=== PATIENT | male | born 1980 | race Caucasian/White ===

== ENCOUNTER 2016-09-12 02:39 | Emergency (ER) | payer SELFPAY ==
--- NOTE | 2016-09-12 03:49 | ER Document Report ---
HPI - HPI Patient complains to provider of: left shoulder injury Pain Level: 4 Context: Patient is a 36-year-old male that comes emergency department for chief complaint of injury to the left shoulder, he states that he slipped on his shower rug and fell, hitting his shoulder on the toilet. He denies head injury or neck pain. Denies focal numbness or weakness, denies any other injuries. He denies any daily medications or medical problems. - CONSTITUTIONAL Constitutional: DENIES: Fever, Chills - REPRODUCTIVE Reproductive: DENIES: : - DERM Skin Color: Normal Skin Problems: None - NURSING COMMENTS Comment: Patient presents to ER AAOx4 with chief complaint of LT shoulder pain due to fall. Patient states that he was getting out of the shower when he slipped striking his LT shoulder on the toliet. Patient is reporting 4/5 pain to the area. Patient does have limited ROM to the LT shoulder. Patient states that when he moves his shoulder he can feel and hear and popping and clicking sound. Patient is currently sitting on stretcher and is in NAD. Breaths even and unlabored. Patient is speaking in clear and complete sentences. Past Medical History - General Information source: Patient - Social History Smoking Status: Current Every Day Smoker Chew tobacco use (# tins/day): No Smoking Education Provided: Yes - < 3 min Frequency of alcohol use: Rare Drug Abuse: None Lives with: Family Family History: Reviewed & Not Pertinent Patient has suicidal ideation: No Patient has homicidal ideation: No Pulmonary Medical History: Reports: Hx Bronchitis Neurological Medical History: Reports: Hx Migraine. Denies: Hx Seizures Renal/ Medical History: Denies: Hx Peritoneal Dialysis GI Medical History: Reports: Hx Irritable Bowel, Hx Ulcer Past Surgical History: Reports: Hx Appendectomy - ruptured last yr - Immunizations Hx Diphtheria, Pertussis, Tetanus Vaccination: Yes Vertical Provider Document - CONSTITUTIONAL General Appearance: WD/WN, No Apparent Distress - Patient is holding his left arm close to his body, otherwise is in no distress - INFECTION CONTROL TRAVEL OUTSIDE OF THE [place] IN LAST 30 DAYS: No - HEENT HEENT: Atraumatic, Normal ENT Exam, Normocephalic - NECK Neck: Normal Inspection - RESPIRATORY Respiratory: Breath Sounds Normal, No Respiratory Distress O2 Sat by Pulse Oximetry: 96 - CARDIOVASCULAR Cardiovascular: Regular Rate, Regular Rhythm - GI/ABDOMEN Gastrointestinal: Abdomen Soft, Abdomen Non-Tender - BACK Back: Normal Inspection - MUSCULOSKELETAL/EXTREMETIES Musculoskeletal/Extremeties: Tender - Patient with tenderness in the before meals joint specifically on the left shoulder, range of motion is painful but present, normal distal neurovascular exam, normal clavicle and scapular exam, normal neck exam. Course - Re-evaluation Re-evalutation: X-ray with no acute abnormalities, no dislocation, fracture, or noted shoulder separation. Patient is tender over the before meals joint, was provided with a sling for comfort, showed him arm pendulum and walking the hand up the wall exercises to maintain range of motion, patient stating he gets "ulcers from acetaminophen, advising this is very unlikely, over he states he'll not take ibuprofen because he had kidney failure from this once. Provided with muscle relaxer, orthopedic follow-up, return precautions discussed, patient states understanding and agreement. - Vital Signs Vital signs: Temp Pulse Resp BP Pulse Ox 97.7 F 79 16 143/88 H 96 09/12/16 02:49 09/12/16 02:49 09/12/16 02:49 09/12/16 02:49 09/12/16 02:49 Procedures - Immobilization left arm/shoulder Pre-Proc Neuro Vasc Exam: Normal Immobilizer type: Sling Performed by: RN Post-Proc Neuro Vasc Exam: Normal Alignment checked and good: Yes Discharge - Discharge Clinical Impression: Injury of left shoulder Qualifiers: Encounter type: initial encounter Qualified Code(s): S49.92XA - Unspecified injury of left shoulder and upper arm, initial encounter Sprain of acromioclavicular joint Qualifiers: Encounter type: initial encounter Laterality: left Qualified Code(s): S43.52XA - Sprain of left acromioclavicular joint, initial encounter Condition: Stable Disposition: HOME, SELF-CARE Additional Instructions: X-ray does not show fracture, dislocation, or obvious shoulder separation. Wear the sling for comfort, however take out your arm regularly and perform the range of motion exercises I showed you. Ice your shoulder 3-4 times daily, take the muscle relaxer. After symptoms resolve resume normal activity. If symptoms do not resolve follow-up with orthopedics for additional management. Return to the emergency department for any concerning symptoms. Prescriptions: Methocarbamol [Robaxin 750 mg Tablet] 750 mg PO Q6 #20 tablet Forms: Return to Work Referrals: MYRIAM LOPEZ MD [ACTIVE STAFF] - Follow up in 1 week
[2016-09-12] MEDS ORDERED: HYDROCODONE/ACETAMINOPHEN 5-325 MG 6 TAB/DSPK PO PRN (03:50)
[2016-09-12 04:07] VITALS: BP 136/84
== END 2016-09-12 04:07 | disposition home or self-care (01) ==
LOC: ER 02:39
DX: S43.52XA Sprain of left acromioclavicular joint, initial encounter (principal); W01.198A Fall on same level from slipping, tripping and stumbling with subsequent striking against other object, initial encounter; Y93.89 Activity, other specified; F17.200 Nicotine dependence, unspecified, uncomplicated
CPT/HCPCS: 99283

== ENCOUNTER 2018-03-31 14:31 | Emergency (ER) | payer OTHER ==
[2018-03-31 15:09] VITALS: BP 136/93
--- NOTE | 2018-03-31 15:35 | RADIOLOGY REPORT (SQ) ---
EXAM DESCRIPTION: HAND RIGHT 3 VIEWS COMPLETED DATE/TIME: 03/31/2018 3:25 pm REASON FOR STUDY: right thumb pain COMPARISON: 01/02/2007 EXAM PARAMETERS: NUMBER OF VIEWS: Three views. TECHNIQUE: AP, lateral and oblique radiographic images acquired of the right hand. LIMITATIONS: None. FINDINGS: MINERALIZATION: Normal. BONES: No acute fracture or dislocation. No worrisome bone lesions. JOINTS: No effusions. SOFT TISSUES: No soft tissue swelling. No foreign body. OTHER: No other significant finding. IMPRESSION: NEGATIVE STUDY OF THE RIGHT HAND. NO RADIOGRAPHIC EVIDENCE OF ACUTE INJURY. TECHNICAL DOCUMENTATION: JOB ID: [id number] [employer]- All Rights Reserved Reading location - IP/workstation name: [email or web address]
--- NOTE | 2018-03-31 15:55 | ER Document Report ---
HPI - HPI Patient complains to provider of: Right thumb injury Onset: This afternoon Onset/Duration: Sudden Quality of pain: Achy Pain Level: 4 Context: Patient states that he was pulling up a jonathan and lost his balance falling back landing on his right hand. Patient complains of right thumb tenderness. Patient is right hand dominant. Associated Symptoms: Other - Right thumb injury Exacerbated by: Movement Relieved by: Denies Similar symptoms previously: No Recently seen / treated by doctor: No - ROS ROS below otherwise negative: Yes Systems Reviewed and Negative: Yes All other systems reviewed and negative - GASTROINTESTINAL Gastrointestinal: DENIES: Nausea - MUSCULOSKELETAL Musculoskeletal: REPORTS: Extremity pain - RIGHT THUMB, Swelling - DERM Skin Color: Normal Past Medical History - General Information source: Patient - Social History Smoking Status: Current Every Day Smoker Smoking Education Provided: Yes Frequency of alcohol use: Occasional Drug Abuse: None 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 Denies: Hx Seizures Renal/ Medical History: Denies: Hx Peritoneal Dialysis GI Medical History: Reports: Hx Irritable Bowel, Hx Ulcer Past Surgical History: Reports: Hx Appendectomy - ruptured last yr - Immunizations Hx Diphtheria, Pertussis, Tetanus Vaccination: Yes Vertical Provider Document - CONSTITUTIONAL Agree With Documented VS: Yes Exam Limitations: No Limitations General Appearance: WD/WN, No Apparent Distress - INFECTION CONTROL TRAVEL OUTSIDE OF THE [place] IN LAST 30 DAYS: No - HEENT HEENT: Atraumatic, Normocephalic - NECK Neck: Normal Inspection - RESPIRATORY Respiratory: No Respiratory Distress - CARDIOVASCULAR Pulses: Normal: Radial - MUSCULOSKELETAL/EXTREMETIES Musculoskeletal/Extremeties: MAEW, Tender - Right thumb tenderness at CMC joint and DIP joint, no obvious laxity, no deformity. Tenderness increases with range of motion. negative: Eccymosis - NEURO Level of Consciousness: Awake, Alert, Appropriate Motor/Sensory: No Motor Deficit - DERM Integumentary: Warm, Dry, No Rash Course - Vital Signs Vital signs: Temp Pulse Resp BP Pulse Ox 98.5 F 72 18 136/93 H 98 03/31/18 15:04 03/31/18 15:04 03/31/18 15:04 03/31/18 15:04 03/31/18 15:04 - Diagnostic Test Radiology reviewed: Image reviewed, Reports reviewed Procedures - Immobilization Right Thumb Pre-Proc Neuro Vasc Exam: Normal Immobilizer type: Thumb spica Performed by: PCT Post-Proc Neuro Vasc Exam: Normal Alignment checked and good: Yes Discharge - Discharge Clinical Impression: Sprain of right thumb Qualifiers: Encounter type: initial encounter Sprain of finger site: unspecified site Qualified Code(s): S63.601A - Unspecified sprain of right thumb, initial encounter Condition: Stable Disposition: HOME, SELF-CARE Instructions: Ice & Elevation ([facility]), Sprained Thumb ([facility]), Temporary Splint ( [facility]) Additional Instructions: Return immediately for any new or worsening symptoms Followup with your primary care provider, call tomorrow to make a followup appointment Follow-up with orthopedics for further evaluation, call tomorrow for an appointment Prescriptions: Tramadol HCl [Ultram 50 mg Tablet] 50 mg PO ASDIR PRN #15 tablet PRN Reason: Forms: Smoking Cessation Education, Return to Work Referrals: AYAN GATES DO [ACTIVE STAFF] - Follow up as needed
== END 2018-03-31 16:19 | disposition home or self-care (01) ==
LOC: ER 14:31
DX: S63.601A Unspecified sprain of right thumb, initial encounter (principal); W19.XXXA Unspecified fall, initial encounter; Y93.89 Activity, other specified; F17.200 Nicotine dependence, unspecified, uncomplicated
CPT/HCPCS: 99283

== ENCOUNTER 2018-06-10 19:57 | Emergency (ER) | payer SELFPAY ==
[2018-06-10] MEDS ORDERED: ONDANSETRON HCL INJ/PF 4 MG/2 ML SDV IV ONE (22:24)
[2018-06-10] MEDS ORDERED: FENTANYL CITRATE INJ/PF 100 MCG/2 ML AMPUL IV ONE (22:24)
--- NOTE | 2018-06-10 22:24 | ER Document Report ---
ED Headache - General Chief Complaint: Headache Stated Complaint: HEADACHE Time Seen by Provider: 06/10/18 22:10 Notes: 37-year-old male to the emergency department for evaluation of chronic dizziness. Patient states that his symptoms have been present for 5 years. States that his blood pressure sometimes is high but does not take anything for it. States that he gets dizzy when he goes from sitting to standing. Has not seen a doctor for it. States that his father had an aneurysm in the brain when he was a kid. Does not know if it was a Chiari malformation or not. Denies any chest pain. No shortness of breath. Sometimes he gets dizzy and little nauseated. Was advised by his center aisle cashier friend to get it checked out today when he almost fell off a roof. 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 TRAVEL OUTSIDE OF THE [place] IN LAST 30 DAYS: No - HPI Patient complains to provider of: Headache Patient reports: Hx chronic headaches. No: Brain neoplasm, Congenital anomally , Prior CVA, Prior neurologic eval, Prior hemorrhage, Prior TBI, ROLL CUTTER Shunt Onset was: Cannot pinpoint, Gradual Timing: Better Quality of pain: Achy Severity: Mild Pain Level: 1 - Related Data Allergies/Adverse Reactions: poison tonia extract [Poison Tonia Extract] Allergy (Verified 09/29/15 21:11) acetaminophen [Acetaminophen] Adverse Reaction (Verified 12/16/13 04:57) ibuprofen Adverse Reaction (Verified 12/16/13 04:57) Past Medical History - General Information source: Patient - Social History Smoking Status: Current Every Day Smoker Frequency of alcohol use: None Drug Abuse: None Lives with: Family Family History: Reviewed & Not Pertinent Patient has suicidal ideation: No Patient has homicidal ideation: No Pulmonary Medical History: Reports: Hx Bronchitis Neurological Medical History: Reports: Hx Migraine. Denies: Hx Seizures Renal/ Medical History: Denies: Hx Peritoneal Dialysis GI Medical History: Reports: Hx Irritable Bowel, Hx Ulcer Past Surgical History: Reports: Hx Appendectomy - ruptured last yr - Immunizations Hx Diphtheria, Pertussis, Tetanus Vaccination: Yes Review of Systems - Review of Systems Notes: Constitutional: denies: Chills, Diaphoresis, Fever, Malaise, Weakness EENT: denies: Eye discharge, Blurred vision, Tearing, Double vision, Nose congestion, Nose discharge, Throat swelling, Mouth pain Cardiovascular: denies: Palpitations, Heart racing, Orthopnea, Dyspnea, Chest pain Respiratory: denies: Cough, Hurts to breathe, Wheezing, Shortness of breath Gastrointestinal: denies: Abdominal pain, Diarrhea, Nausea, Vomiting, Black stools, bright red blood in stool Genitourinary: denies: Burning, Dysuria, Discharge, Frequency, Flank pain, Hematuria Musculoskeletal: denies: Joint pain, Joint swelling, Muscle pain, Muscle stiffness, back pain Hematologic/Lymphatic: denies: Anemia, Easy bleeding, Easy bruising, Blood clots Neurological/Psychological: denies: Confusion, Dementia, Depression, Loss of consciousness. Does complain of dizziness and headaches Skin: No lesions, no masses, no skin breakdown, no abscesses Physical Exam - Vital signs Vitals: Temp Pulse Resp BP Pulse Ox 98.1 F 76 17 129/77 H 98 06/10/18 20:10 06/10/18 20:10 06/10/18 20:10 06/10/18 20:10 06/10/18 20:10 Interpretation: Normal - General General appearance: Appears well, Alert - HEENT Head: Normocephalic, Atraumatic Eyes: Normal Pupils: PERRL - Respiratory Respiratory status: No respiratory distress Chest status: Nontender Breath sounds: Normal Chest palpation: Normal - Cardiovascular Rhythm: Regular Heart sounds: Normal auscultation Murmur: No - Abdominal Inspection: Normal Distension: No distension Bowel sounds: Normal Tenderness: Nontender Organomegaly: No organomegaly - Back Back: Normal, Nontender - Extremities General upper extremity: Normal inspection, Nontender, Normal color, Normal ROM , Normal temperature General lower extremity: Normal inspection, Nontender, Normal color, Normal ROM , Normal temperature, Normal weight bearing. No: Donnell's sign - Neurological Neuro grossly intact: Yes Cognition: Normal Orientation: AAOx4 Brigette Coma Scale Eye Opening: Spontaneous Brigette Coma Scale Verbal: Oriented Brigette Coma Scale Motor: Obeys Commands Brigette Coma Scale Total: 15 Speech: Normal Cranial nerves: Normal Cerebellar coordination: Normal. No: Gait ataxia Motor strength normal: LUE, RUE, LLE, RLE Additional motor exam normals: Equal strategic consultant. No: Involuntary movements, Pronator drift Babinski reflex: Normal (flexor plantar) Sensory: Normal - Psychological Associated symptoms: Normal affect, Normal mood - Skin Skin Temperature: Warm Skin Moisture: Dry Skin Color: Normal Course - Re-evaluation Re-evalutation: 06/10/18 23:20 Based on this possible history/family history of questionable aneurysm/Chiari malformation and going to go ahead and get a head CT as he denies ever having any brain imagery done. We will check his labs based on his prior history of renal failure. We will do a EKG and troponin based on this dizziness to make sure this is not an anginal equivalent. Will give patient something for his headache at this time as well and then we will reassess. 06/10/18 23:49 Laboratory 06/10/18 06/10/18 06/10/18 22:06 22:06 22:06 WBC 9.5 RBC 5.11 Hgb 14.7 Hct 43.9 MCV 86 MCH 28.8 MCHC 33.6 RDW 13.2 Plt Count 290 Seg Neutrophils % 62.1 Lymphocytes % 27.1 Monocytes % 5.4 Eosinophils % 4.6 Basophils % 0.8 Absolute Neutrophils 5.9 Absolute Lymphocytes 2.6 Absolute Monocytes 0.5 Absolute Eosinophils 0.4 Absolute Basophils 0.1 Sodium 142.6 Potassium 4.0 Chloride 108 H Carbon Dioxide 25 Anion Gap 10 BUN 17 Creatinine 1.46 H Est GFR ( Amer) > 60 Est GFR (Non-Af Amer) 55 L Glucose 97 Calcium 9.7 Total Bilirubin 0.3 Direct Bilirubin 0.2 Neonat Total Bilirubin Not Reportable Neonat Direct Bilirubin Not Reportable Neonat Indirect Bili Not Reportable AST 18 ALT 25 Alkaline Phosphatase 66 Troponin I < 0.012 Total Protein 7.0 Albumin 4.4 Chest X-Ray 06/10/18 22:23 IMPRESSION: No acute disease. Head CT 06/10/18 22:23 IMPRESSION: No acute intracranial abnormalities. Head CT unremarkable. Chest x-ray normal. EKG and labs fairly unremarkable. Renal function with a creatinine of 1.46 but much better than prior. At this time I will advised the patient increase his fluid intake as he could be having some orthostatic hypotension. We will give him follow-up information for a neurologist as well as a environmental technical officer. We will advised that he avoid getting on roofs if he is feeling dizzy or operating heavy equipment if he is feeling dizzy - Vital Signs Vital signs: Temp Pulse Resp BP Pulse Ox 98.1 F 76 17 129/77 H 98 06/10/18 20:10 06/10/18 20:10 06/10/18 20:10 06/10/18 20:10 06/10/18 20:10 - Laboratory Result Diagrams: 06/10/18 22:06 06/10/18 22:06 Laboratory results interpreted by me: 06/10/18 22:06 Chloride 108 H Creatinine 1.46 H Est GFR (Non-Af Amer) 55 L - EKG Interpretation by Me EKG shows normal: Sinus rhythm, [place], Intervals, QRS Complexes, ST-T Waves Discharge - Discharge Clinical Impression: Dizziness of unknown cause Condition: Good Disposition: HOME, SELF-CARE Instructions: Headache ([facility]), Dizziness ([facility]) Additional Instructions: The workup today did not reveal anything significant. You may require further testing. Please follow-up with a environmental technical officer as well as a neurologist. There are more advanced testing can be performed as an outpatient. Please avoid getting on high objects such as roofs or scaffolding if you are dizzy. There is a high risk of falling. Please avoid operating heavy machinery if you are feeling dizzy. You need to increase your fluid intake as you could be having some mild dehydration. In the event that you are having worsening symptoms please return and we will reevaluate you. Prescriptions: Butalb/Acetaminophen/Caffeine [Gzidhj-Pwgvohll-Ffnz 50-300-40] 1 cap PO Q8 PRN 3 Days #10 cap PRN Reason: For Headache Referrals: QUENTIN MEAD MD [ACTIVE STAFF] - Follow up as needed SURI CHA MD [NO LOCAL MD] - Follow up as needed
[2018-06-10 22:30] LABS: ABSOLUTE BASOPHILS # (AUTO) 0.1 10^3/uL (0.0-0.2); ABSOLUTE EOSINOPHILS # (AUTO) 0.4 10^3/uL (0.0-0.6); ABSOLUTE LYMPHOCYTES (AUTO) 2.6 10^3/uL (0.5-4.7); ABSOLUTE MONOCYTES (AUTO) 0.5 10^3/uL (0.1-1.4); ABSOLUTE NEUT (AUTO) 5.9 10^3/uL (1.7-8.2); BASOPHILS % (AUTO) 0.8 % (0-2); EOSINOPHILS % (AUTO) 4.6 % (0-6); HEMATOCRIT 43.9 % (37.9-51.0); HEMOGLOBIN 14.7 g/dL (13.5-17.0); LYMPHOCYTES % (AUTO) 27.1 % (13-45); MEAN CORPUSCULAR HEMOGLOBIN 28.8 pg (27.0-33.4); MEAN CORPUSCULAR HGB CONC 33.6 g/dL (32.0-36.0); MEAN CORPUSCULAR VOLUME 86 fl (80-97); MONOCYTES % (AUTO) 5.4 % (3-13); PLATELET COUNT 290 10^3/uL (150-450); RED BLOOD COUNT 5.11 10^6/uL (4.35-5.55); RED CELL DISTRIBUTION WIDTH 13.2 % (11.5-14.0); SEGMENTED NEUTROPHILS % (AUTO) 62.1 % (42-78); TOTAL CELLS COUNTED % (AUTO) 100 %; WHITE BLOOD COUNT 9.5 10^3/uL (4.0-10.5)
[2018-06-10 22:43] LABS: ALANINE AMINOTRANSFERASE 25 U/L (21-72); ALBUMIN 4.4 g/dL (3.5-5.0); ALKALINE PHOSPHATASE 66 U/L (38-126); ANION GAP 10 (5-19); ASPARTATE AMINO TRANSFERASE 18 U/L (17-59); BILIRUBIN,DIRECT 0.2 mg/dL (0.0-0.4); BILIRUBIN,TOTAL 0.3 mg/dL (0.2-1.3); BLOOD UREA NITROGEN 17 mg/dL (7-20); CALCIUM 9.7 mg/dL (8.4-10.2); CARBON DIOXIDE 25 mmol/L (22-30); CHLORIDE 108 mmol/L (98-107); GLUCOSE 97 mg/dL (75-110); SODIUM 142.6 mmol/L (137-145)
--- NOTE | 2018-06-10 22:50 | RADIOLOGY REPORT (SQ) ---
EXAM DESCRIPTION: XR CHEST 2 VIEWS COMPLETED DATE/TME: 06/10/2018 22:23 CLINICAL HISTORY: 37 years, Male, near syncope Compared to 08/07/2015. FINDINGS: Heart is not enlarged. No consolidation or pleural effusion. No pulmonary edema or pneumothorax. IMPRESSION: No acute disease.
--- NOTE | 2018-06-10 23:41 | RADIOLOGY REPORT (SQ) ---
EXAM DESCRIPTION: CT head without contrast CLINICAL HISTORY: near syncope, FORD and FH of Aneurysm COMPARISON: None Available. Technique: Contiguous axial images of the brain were obtained without the administration of intravenous contrast. Coronal and sagittal reformats obtained and reviewed. This exam was performed according to our departmental dose-optimization program which includes use of Automated Exposure Control, adjustment of the mA and/or kV according to patient size and/or use of iterative reconstruction technique. Findings: Brain: No hemorrhage. No territorial infarct. No mass effect. No herniation. Ventricles: Within normal limits for patient's age. Bones: No acute osseous abnormality. Paranasal sinuses: Mucosal thickening in the ethmoid air cells and both maxillary sinuses.. Mastoid air cells: Unremarkable. Soft tissues: No acute abnormality. IMPRESSION: No acute intracranial abnormalities.
[2018-06-11 00:32] VITALS: BP 134/78
--- NOTE | 2018-06-11 07:43 | EKG REPORT ---
SEVERITY:- NORMAL ECG - SINUS RHYTHM : Confirmed by: Sterling Triana MD 11-Jun-2018 07:42:17
== END 2018-06-11 00:32 | disposition home or self-care (01) ==
LOC: ER 19:57
DX: R51 Headache (principal); R42 Dizziness and giddiness; F17.200 Nicotine dependence, unspecified, uncomplicated; Z88.6 Allergy status to analgesic agent
CPT/HCPCS: 93005; 99284; 96374; 36415; 85025; 80053; 84484; 71046; 70450; 93010; J3010; J2405

== ENCOUNTER 2019-10-13 08:25 | Emergency (ER) | payer SELFPAY ==
--- NOTE | 2019-10-13 09:12 | ER Document Report ---
HPI - HPI Time Seen by Provider: 10/13/19 08:38 Onset: Yesterday Onset/Duration: Gradual Quality of pain: Burning Pain Level: 2 Context: Patient states that he was working in wet cement all day yesterday at work. Patient states that he did remove his boots yesterday evening and wash his feet although complains of wounds between the toes of each feet. Patient reports tetanus immunization is currently up-to-date. Associated Symptoms: denies: Fever, Nausea Exacerbated by: Walking Relieved by: Denies Similar symptoms previously: No Recently seen / treated by doctor: No - ROS ROS below otherwise negative: Yes Systems Reviewed and Negative: Yes All other systems reviewed and negative - CONSTITUTIONAL Constitutional: DENIES: Fever, Chills - GASTROINTESTINAL Gastrointestinal: DENIES: Nausea - MUSCULOSKELETAL Musculoskeletal: REPORTS: Extremity pain. 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 Denies: Hx Seizures Renal/ Medical History: Denies: Hx Peritoneal Dialysis GI Medical History: Reports: Hx Irritable Bowel, Hx Ulcer Past Surgical History: Reports: Hx Appendectomy - ruptured last yr - Immunizations Hx Diphtheria, Pertussis, Tetanus Vaccination: Yes Vertical Provider Document - CONSTITUTIONAL Agree With Documented VS: Yes Exam Limitations: No Limitations General Appearance: WD/WN, No Apparent Distress - INFECTION CONTROL TRAVEL OUTSIDE OF THE [place] IN LAST 30 DAYS: No - HEENT HEENT: Atraumatic, Normocephalic - NECK Neck: Normal Inspection, Supple. negative: Lymphadenopathy-Left, Lymphadenopathy-Right - RESPIRATORY Respiratory: Breath Sounds Normal, No Respiratory Distress - CARDIOVASCULAR Cardiovascular: Regular Rate, Regular Rhythm - BACK Back: Normal Inspection - MUSCULOSKELETAL/EXTREMETIES Musculoskeletal/Extremeties: MAEW - NEURO Level of Consciousness: Awake, Alert, Appropriate Motor/Sensory: No Motor Deficit - DERM Integumentary: Warm, Dry Notes: Patient with secondary jay to the medial and lateral aspect of the toes of ea ch foot, no surrounding erythema, no purulent drainage. Wounds less than 1 cm in size Course - Re-evaluation Re-evalutation: 10/13/19 Patient with chemical jay to bilateral feet. Patient does report washing his feet since the recent exposure. Patient educated on avoidance of exposure to the chemicals and cement as these can burn the skin. Discussed worsening signs of infection that patient should return immediately for. Patient verbalized understanding and is agreeable with discharge plan of care. Discharge - Discharge Clinical Impression: Chemical burn, toe burn, multiple sites Condition: Stable Disposition: HOME, SELF-CARE Instructions: Jay ([facility]), Dressing Instructions for Open Wounds ([facility]), Soap Cleansing ([facility]) Additional Instructions: Return immediately for any new or worsening symptoms: Redness, streaks, swelling, fever increased pain or any worrisome symptoms Followup with your primary care provider, call tomorrow to make a followup appointment Use bacitracin to dress wounds and cover with a nonadherent dressing, be sure to wrap each toe individually Referrals: [facility] [Provider Group] - Follow up as needed
[2019-10-13 09:16] VITALS: BP 137/84
== END 2019-10-13 09:48 | disposition home or self-care (01) ==
LOC: ER 08:25
DX: T65.91XA Toxic effect of unspecified substance, accidental (unintentional), initial encounter (principal); M79.671 Pain in right foot; M79.672 Pain in left foot; Y92.9 Unspecified place or not applicable; F17.200 Nicotine dependence, unspecified, uncomplicated
CPT/HCPCS: 99283